=== PATIENT | male | born 1975 | race African-American/Black ===

== ENCOUNTER → 2017-03-13 | Outpatient (CLI) | payer OTHER ==
--- NOTE | 2017-03-13 14:18 | Diagnostic Imaging Report ---
INDICATION: Left arm paresthesia. COMPARISON: None. FINDINGS: Frontal, lateral, and open-mouth radiographic views of the cervical spine were obtained. Cervical spine is seen down to the C7 level on the lateral view. C7-T1 intervertebral disc space level is partially obscured. Evaluation of static alignment demonstrates reversal of normal lordotic curvature epicentered at the C5-C6 level. There is no significant kim or retrolisthesis. There is no evidence of jumped facets. Open-mouth view demonstrates normal C1-C2 alignment. Vertebral body heights are maintained. There is no evidence of acute fracture. There are mild degenerative changes localized at the C5-C6 level. Surrounding soft tissue structures are unremarkable. Included portions of the lung apices are clear. IMPRESSION: 1. No radiographic evidence of acute fracture or dislocation of cervical spine. 2. Degenerative changes of the cervical spine greatest at C5-C6 level. Dictated by: Dictated on workstation # [id number]
--- NOTE | 2017-03-13 14:24 | Diagnostic Imaging Report ---
INDICATION: Left arm paresthesia. Back pain. COMPARISON: None. FINDINGS: Frontal and lateral views of the thoracic spine were obtained. Visualization of the upper thoracic spine is limited on the lateral projection. Alignment and vertebral heights are maintained. There is no fracture or destructive process. There are no large paraspinal masses. 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 Limited views of the lungs are clear. IMPRESSION: 1. No acute fracture or dislocation of the thoracic spine. 2. Mild multilevel degenerative changes. Dictated by: Dictated on workstation # [id number]
== END ==
LOC: RAD 13:11
DX: M47.813 Spondylosis without myelopathy or radiculopathy, cervicothoracic region (principal); R20.2 Paresthesia of skin
CPT/HCPCS: 72040; 72072